=== PATIENT | male | born 1960 | race Two or more races ===

== ENCOUNTER 2017-10-01 15:40 | Emergency (ER) | payer BC ==
[2017-10-01 15:52] VITALS: BP 135/85; PULSE 77; TEMP 98.1; BMI 23.6
[2017-10-01] MEDS ORDERED: morphine CARPU-JECT 4 MG/1 ML DISP.SYRIN IVPUSH ONE ×2 (15:59→17:43)
--- NOTE | 2017-10-01 16:05 | PDOC ---
Attending Attestation - HPI HPI: 10/01/17 16:34 The patient is a 57 year old male, with no significant past medical history, who presents to the emergency department s/p mechanical fall with, pain to the right hand. He reports his pain to be at his right extremity worsening at his hand and fingers. As per patient, he was ice skating and fell backwards on his hand. He denies any recent fevers, chills, headache or dizziness. He denies any recent nausea, vomit, diarrhea or constipation. He denies any recent chest pain or shortness of breath. He denies any recent dysuria, frequency, urgency or hematuria. Allergies: NKA Past surgical history: None reported. Social History: Nonsmoker. Denies EtOH use and recreational drug use. <Placido Segovia - Last Filed: 10/01/17 16:34> - Resident Resident Name: Urbano Powellica - ED Attending Attestation I have performed the following: I have examined & evaluated the patient, The case was reviewed & discussed with the resident, I agree w/resident's findings & plan, Exceptions are as noted - Physicial Exam PE: GENERAL: Awake, alert, and fully oriented, in no acute distress HEAD: No signs of trauma EYES: PERRLA, EOMI, sclera anicteric, conjunctiva clear ENT: Auricles normal inspection, hearing grossly normal, nares patent, oropharynx clear without exudates. Moist mucosa NECK: Normal ROM, supple, no lymphadenopathy, JVD, or masses LUNGS: Breath sounds equal, clear to auscultation bilaterally. No wheezes, and no crackles HEART: Regular rate and rhythm, normal S1 and S2, no murmurs, rubs or gallops ABDOMEN: Soft, nontender, normoactive bowel sounds. No guarding, no rebound. No masses EXTREMITIES: R wrist with obvious deformity. +Bony tenderness over distal radius and ulna. Distal NV intact. Remainder of extremities with normal range of motion, no edema. No clubbing or cyanosis. No cords, erythema, or tenderness NEUROLOGICAL: Cranial nerves II through XII grossly intact. Normal speech, normal gait. Motor and sensation intact. SKIN: Warm, Dry, normal turgor, no rashes or lesions noted. - Medical Decision Making 10/01/17 16:08 Pt is s/p fall with R wrist pain, likely radial/ulnar fx. Will give pain medication and splint prior to Xray, as deformity is quite mobile. <Lizzie Moody - Last Filed: 10/01/17 16:51> Attestations - Attestations 10/01/17 16:34 Documentation prepared by Placido Sgeovia, acting as medical office manager for Lizzie Moody MD. <Placido Segovia - Last Filed: 10/01/17 16:34>
[2017-10-01] MEDS ORDERED: MORPHINE SULFATE 10 MG/1 ML *VIAL ONE ×2 (16:06→17:50)
--- NOTE | 2017-10-01 16:25 | PDOC ---
History of Present Illness <Lizzie Moody - Last Filed: 10/01/17 18:41> - History of Present Illness Initial Comments: 10/01/17 16:12 57 y.o. male with no reported PMH who presents to our ED this afternoon c/o of RUE pain following a fall. Patient was ice skating at [employer] [facility] this afternoon when he slipped and injured his RUE by trying to break his fall. Patient denies any head trauma or LOC. Patient is now complaining of throbbing pain localized to his R hand and wrist. Patient denies any chest pain, shortnes sof breath, abdominal pain, nausea/ vomiting, diarrhea/constipation, recent travel or sick contacts. NKDA Surgical: denies Social: denies nicotine, social alcohol, denies recreational drugs <Sneha Powell - Last Filed: 10/02/17 20:50> - General Chief Complaint: Injury Stated Complaint: FALL Time Seen by Provider: 10/01/17 15:45 Past History <Lizzie Moody - Last Filed: 10/01/17 18:41> - Suicide/Smoking/Psychosocial Hx Smoking History: Never smoked Hx Alcohol Use: No Drug/Substance Use Hx: No <Sneha Powell - Last Filed: 10/02/17 20:50> - Past Medical History Allergies/Adverse Reactions: Allergies Allergy/AdvReac Type Severity Reaction Status Date / Time No Known Allergies Allergy Verified 10/01/17 15:45 Home Medications: Ambulatory Orders Ibuprofen [Motrin -] 600 mg PO TID PRN #21 tablet 10/01/17 Oxycodone HCl/Acetaminophen [Percocet 5-325 mg Tablet] 1 tab PO Q6H PRN #12 tablet MDD 4 tabs 10/01/17 Review of Systems - Review of Systems Constitutional: No: Chills, Fever HEENTM: No: Recent change in vision Respiratory: No: Cough, Shortness of Breath Cardiac (ROS): No: Chest Pain, Lightheadedness, Palpitations, Syncope ABD/GI: No: Constipated, Diarrhea, Nausea, Vomiting Musculoskeletal: Yes: Joint Pain, Joint Swelling, Muscle Pain <Sneha Powell - Last Filed: 10/02/17 20:50> *Physical Exam - Vital Signs Last Vital Signs Temp Pulse Resp BP Pulse Ox 98.1 F 77 18 135/85 100 10/01/17 15:45 10/01/17 15:45 10/01/17 15:45 10/01/17 15:45 10/01/17 15:45 <Lizzie Moody - Last Filed: 10/01/17 18:41> - Vital Signs Last Vital Signs Temp Pulse Resp BP Pulse Ox 98.1 F 77 18 135/85 100 10/01/17 15:45 10/01/17 15:45 10/01/17 15:45 10/01/17 15:45 10/01/17 15:45 - Physical Exam General Appearance: Yes: Nourished, Appropriately Dressed HEENT: positive: EOMI, MASTER Neck: positive: Tender, Supple Respiratory/Chest: positive: Lungs Clear Cardiovascular: positive: S1, S2 Gastrointestinal/Abdominal: positive: Normal Bowel Sounds, Soft Extremity: positive: Normal Capillary Refill, Other (RUE held in supination, shows R wrist dislocation, neurovasculary intact, ROM w/pain). negative: Coldness Integumentary: positive: Normal Color, Dry, Warm Neurologic: positive: mill roll rewinder II-XII NML intact, Fully Oriented, Alert <Sneha Powell - Last Filed: 10/02/17 20:50> Procedures - Splinting Splint Location: Right: Forearm Pre-Proc Neuro Vasc Exam: normal Hand-Made Type: orthoglass Splint Type: Yes: Short Arm Post-Proc Neuro Vasc Exam: normal Junior Bandage: 3" Sling: Yes Complications: No Post splint xray: Yes - Joint Reduction Right Joint Reduction Site: right: Colles' Fracture Pre-Procedure NV Exam: normal Finger Block: Hematoma Anesthetic: 2% Lidocaine Amount (mL): 10 Procedure: Colles Reduction Complications: No Post Joint Reduction Film: reduced Splint: Yes <Lizzie Moody - Last Filed: 10/01/17 18:41> ED Treatment Course - Medications Given in the ED: ED Medications Discontinued Medications Generic Name Dose Route Start Last Admin Trade Name Freq PRN Reason Stop Dose Admin Morphine Sulfate 4 mg 10/01/17 15:59 10/01/17 16:09 Morphine Injection - IVPUSH 10/01/17 16:00 4 mg ONCE ONE Administration Morphine Sulfate 4 mg 10/01/17 17:43 10/01/17 17:55 Morphine Injection - IVPUSH 10/01/17 17:44 4 mg ONCE ONE Administration <Lizzie Moody - Last Filed: 10/01/17 18:41> - Medications Given in the ED: ED Medications Discontinued Medications Generic Name Dose Route Start Last Admin Trade Name Freq PRN Reason Stop Dose Admin Morphine Sulfate 4 mg 10/01/17 15:59 10/01/17 16:09 Morphine Injection - IVPUSH 10/01/17 16:00 4 mg ONCE ONE Administration <Sneha Powell - Last Filed: 10/02/17 20:50> Medical Decision Making - Medical Decision Making 10/01/17 16:29 57 y.o. male presents following a fall while ice skating in which he injured his R wrist and hand. On PE patient is neurovasculary intact with obvious dislocation of his R wrist. Will splint R wrist for patient comfort and obtain R hand/wrist XR. Morphine for pain control. Reassess. 10/01/17 17:07 Wet read of XR shows distal radial fracture c/w FOOSH injury. Case d/w Dr. Zamarripa (Orthopedic Surgery) will reduce fracture for swelling reduction w/ hematoma block. Fracture reduction + A/P splint. Repeat XR shows significant reduction. Patient discharged home with orthopedic follow-up. <Sneha Powell - Last Filed: 10/02/17 20:50> *DC/Admit/Observation/Transfer - Discharge Dispostion Admit: No <Lizzie Moody - Last Filed: 10/01/17 18:41> - Discharge Dispostion Admit: No <Sneha Powell - Last Filed: 10/02/17 20:50> Diagnosis at time of Disposition: Distal radius fracture, right Qualifiers: Encounter type: initial encounter Fracture type: closed Fracture morphology: unspecified fracture morphology Qualified Code(s): S52.501A - Unspecified fracture of the lower end of right radius, initial encounter for closed fracture - Discharge Dispostion Disposition: HOME Condition at time of disposition: Good - Prescriptions Prescriptions: Ibuprofen [Motrin -] 600 mg PO TID PRN #21 tablet PRN Reason: Pain Oxycodone HCl/Acetaminophen [Percocet 5-325 mg Tablet] 1 tab PO Q6H PRN #12 tablet MDD 4 tabs PRN Reason: Severe Pain - Referrals Referrals: Guy Zamarripa MD [Staff Physician] - - Patient Instructions Printed Discharge Instructions: How to Use a Sling, DI for Wrist Fracture Additional Instructions: Call Dr. Zamarripa's office for appointment tomorrow. Print Language: CENTRAL AFRICAN
[2017-10-01] MEDS ORDERED: LIDOCAINE HCL 2% (20ML MULTI-DOSE VIAL) NR ONE (18:09)
== END 2017-10-01 19:18 | disposition home or self-care (01) ==
LOC: JER 15:40
PROC: 0PSJXZZ Reposition Left Radius, External Approach (ICD-10-PCS; principal; 2017-10-01)
DX: S52.501A Unspecified fracture of the lower end of right radius, initial encounter for closed fracture (principal); W00.0XXA Fall on same level due to ice and snow, initial encounter; Y93.21 Activity, ice skating; Y92.330 Ice skating rink (indoor) (outdoor) as the place of occurrence of the external cause
CPT/HCPCS: 73110-TC-RT-FY; 73130-TC-RT-FY; 99282-25